=== PATIENT | female | born 1950 | race Caucasian/White ===

== ENCOUNTER 2016-07-15 | Outpatient (CLI) | payer SELFPAY | END 2016-07-15 15:00 | disposition home or self-care (01) | DX: I45.81 Long QT syndrome (principal) ==

== ENCOUNTER 2016-10-14 13:25 | Outpatient (CLI) | payer SELFPAY | END 2016-10-14 23:59 | DX: R60.0 Localized edema (principal) ==

== ENCOUNTER 2016-10-18 12:46 | Emergency (ER) | payer SELFPAY ==
[2016-10-18] MEDS ORDERED: SODIUM CHLORIDE 0.9% 1,000 ML IV ONE (16:05)
[2016-10-18] MEDS ORDERED: CLINDAMYCIN 150 MG CAPSULE PO STA (16:16)
[2016-10-18] MEDS ORDERED: CLINDAMYCIN 150 MG CAPSULE PO ONE (16:21)
== END 2016-10-18 17:11 | disposition home or self-care (01) ==
DX: L03.115 Cellulitis of right lower limb (principal); I11.0 Hypertensive heart disease with heart failure; I50.9 Heart failure, unspecified; E11.9 Type 2 diabetes mellitus without complications; Z79.4 Long term (current) use of insulin; K21.9 Gastro-esophageal reflux disease without esophagitis; M19.90 Unspecified osteoarthritis, unspecified site
CPT/HCPCS: 36415; 80053; 83605; 83690; 85025; 87040; 93971; 99283; 99284; A9270